=== PATIENT | male | born 1975 | race Caucasian/White ===

== ENCOUNTER 2017-08-17 18:33 | Emergency (ER) | payer OTHER ==
[~2017-08-17] VITALS: Ht 185.4 cm; Wt 95.3 kg
[2017-08-17 18:38] VITALS: BP_SYST 143
[2017-08-17] MEDS ORDERED: KETOROLAC TROMETHAMINE 30 MG VIAL IM ONE (19:00)
[2017-08-17 19:25] LABS: BASOPHILS % (AUTO) 0.6 % (0.0-2.0); EOSINOPHILS # (AUTO) 0.1 K/uL (0.0-0.4); EOSINOPHILS % (AUTO) 1.5 % (0.0-4.0); HEMATOCRIT 41.5 % (36-54); HEMOGLOBIN 14.4 g/dL (14.0-18.0); LYMPHOCYTES # (AUTO) 2.6 K/uL (1.0-5.5); LYMPHOCYTES % (AUTO) 32.8 % (20.5-51.5); MEAN CORPUSCULAR HEMOGLOBIN 32 pg (27-31); MEAN CORPUSCULAR HGB CONC 35 % (32-36); MEAN CORPUSCULAR VOLUME 92 fL (79.0-98.0); MONOCYTES # (AUTO) 0.6 K/uL (0.0-1.0); MONOCYTES % (AUTO) 7.3 % (1.7-9.3); NEUTROPHILS # (AUTO) 4.5 K/uL (1.8-7.7); NEUTROPHILS % (AUTO) 57.8 % (40.0-70.0); PLATELET COUNT (AUTO) 252 K/uL (130-430); RED BLOOD CELL COUNT(AUTO) 4.51 MIL/uL (4.2-6.2); RED CELL DISTRIBUTION WIDTH 12.3 % (9.0-15.0); WHITE BLOOD COUNT (AUTO) 7.8 K/uL (4.8-10.8)
[2017-08-17 19:38] LABS: CREATININE 1.35 mg/dL (0.55-1.30); POTASSIUM 4.6 mmol/L (3.5-5.1)
[2017-08-17 19:41] LABS: URIC ACID 7.2 mg/dL (2.4-7.0)
[2017-08-17] MEDS ORDERED: PREDNISONE 20 MG TABLET PO ONE (19:45)
[2017-08-17 20:30] VITALS: BP_SYST 143
== END 2017-08-17 20:30 | disposition home or self-care (01) ==
LOC: SED 18:33
DX: M10.9 Gout, unspecified (principal); R03.0 Elevated blood-pressure reading, without diagnosis of hypertension; Z87.891 Personal history of nicotine dependence
CPT/HCPCS: 36415; 73610; 80048; 84550; 85025; 96372; 99285; J1885; J7512